=== PATIENT | male | born 2000 | race Caucasian/White ===

== ENCOUNTER 2022-07-18 16:25 | Emergency (ER) | payer SELFPAY ==
[2022-07-18 17:31] LABS: Absolute Lymphocytes (CBC) 2.5 K/uL (0.7-4.9); Hematocrit 43.8 % (39.6-49.0); Lymphocytes % 25.8 % (15.3-44.8); MPV 8.7 fL (7.6-11.3); RBC Red Blood Cell Count 5.09 M/uL (4.33-5.43)
--- NOTE | 2022-07-18 18:36 | EDPHYS ---
Physician Documentation [facility] Name: Tex Christopher III Age: 22 yrs Sex: Male : 2000 Arrival Date: 07/18/2022 Time: 16:26 Bed Treatment Private MD: ED Physician Helio Thompson HPI: 07/18 16:48 This 22 yrs old Male presents to ER via Ambulatory with complaints of Rectal Bleeding. ms3 18:27 22-year-old male with past medical history of hemorrhoids presents for rectal bleeding ms3 that has occurred over the last week. Patient state the bleeding occurs in the morning with his bowel movement. Patient denies pain at this time. Patient denies alleviating or inciting factors. Patient denies SOB, lighheadedness, chest pain, fevers, chills.. Historical: - Allergies: 16:38 No Known Allergies; kb3 - Home Meds: 16:38 None [Active]; kb3 - PMHx: 16:38 Hemorrhoids; kb3 - PSHx: 16:38 None; kb3 - Immunization history:: Adult Immunizations up to date, Client reports having NOT received the Covid vaccine. Last tetanus immunization: up to date. - Social history:: Smoking status: Patient denies any tobacco usage or history of. ROS: 18:27 Constitutional: Negative for fever, and chills. ENT: Negative for injury, pain, and ms3 discharge, Neck: Negative for injury, pain, and swelling, Cardiovascular: Negative for chest pain, and palpitations. Respiratory: Negative for shortness of breath, cough, wheezing, and pleuritic chest pain. 18:27 Skin: Negative for injury, rash, and discoloration, Neuro: Negative for headache, weakness, numbness, tingling. 18:27 Abdomen/GI: Positive for rectal bleeding. 18:27 All other systems are negative. Exam: 18:27 Constitutional: This is a well developed, well nourished patient who is awake, alert, ms3 and in no acute distress. Head/Face: Normocephalic, atraumatic. Eyes: Pupils equal round and reactive to light, extra-ocular motions intact. Lids and lashes normal. Conjunctiva and sclera are non-icteric and not injected. Periorbital areas with no swelling, redness, or edema. Chest/axilla: Normal chest wall appearance and motion. Nontender with no deformity. Cardiovascular: Regular rate and rhythm with a normal S1 and S2. No gallops, murmurs, or rubs. Normal PMI, no JVD. No pulse deficits. Respiratory: Lungs have equal breath sounds bilaterally, clear to auscultation and percussion. No rales, rhonchi or wheezes noted. No increased work of breathing, no retractions or nasal flaring. Abdomen/GI: Soft, non-tender, with normal bowel sounds. No distension or tympany. No guarding or rebound. No evidence of tenderness throughout. Skin: Warm, dry with normal turgor. Normal color with no rashes, no lesions, and no evidence of cellulitis. Psych: Awake, alert, with orientation to person, place and time. Behavior, mood, and affect are within normal limits. 18:27 : Patient defers rectal exam as he had one performed a few days ago at his PMD office.. Vital Signs: 16:35 BP 125 / 83; Pulse 94; Resp 16; Temp 98.1; Pulse Ox 99% ; Weight 111.13 kg; Height 5 kb3 ft. 9 in. (175.26 cm); Pain 0/10; 16:35 Body Mass Index 36.18 (111.13 kg, 175.26 cm) kb3 MDM: 16:40 Patient medically screened. ms3 18:27 Data reviewed: vital signs, nurses notes, lab test result(s), and as a result, I will ms3 discharge patient. Counseling: I had a detailed discussion with the patient and/or guardian regarding: the historical points, exam findings, and any diagnostic results supporting the discharge/admit diagnosis, lab results, the need for outpatient follow up, to return to the emergency department if symptoms worsen or persist or if there are any questions or concerns that arise at home. 07/18 16:40 Order name: CBC with Diff; Complete Time: 18:03 ms3 Administered Medications: No medications were administered Disposition Summary: 07/18/22 18:36 Discharge Ordered Location: Home ms3 Condition: Stable ms3 Diagnosis - Rectal bleeding ms3 Followup: ms3 - With: Hai Mar MD - When: 2 - 3 days - Reason: Recheck today's complaints Discharge Instructions: - Discharge Summary Sheet ms3 - Rectal Bleeding ms3 - Rectal Bleeding, [id number] ms3 Forms: - Medication Reconciliation Form ms3 - Thank You Letter ms3 - Antibiotic Education ms3 - Prescription Opioid Use ms3 Signatures: Dispatcher [employer] EDHelio Dennison, DO ms3 Riana Schaffer, RN RN kb3 Corrections: (The following items were deleted from the chart) 22:33 18:27 22-year-old male with past medical history of hemorrhoids presents for. ms3 ms3 22:36 18:27 22-year-old male with past medical history of hemorrhoids presents for. ms3 ms3
--- NOTE | 2022-07-18 18:36 | ER ---
Nurse's Notes [facility] Name: Tex Christopher III Age: 22 yrs Sex: Male : 2000 Arrival Date: 07/18/2022 Time: 16:26 Bed Treatment Private MD: Diagnosis: Rectal bleeding Presentation: 07/18 16:35 Chief complaint: Patient states: Pt reports hx of bleeding hemorrhoids, states bleeding kb3 from rectum x1.5 weeks this episode. Coronavirus screen: Vaccine status: Patient reports being unvaccinated. Client denies travel out of the [place] in the last 14 days. Ebola Screen: Patient negative for fever greater than or equal to 101.5 degrees Fahrenheit, and additional compatible Ebola Virus Disease symptoms Patient denies exposure to infectious person. Patient denies travel to an Ebola-affected area in the 21 days before illness onset. Initial Sepsis Screen: Does the patient meet any 2 criteria? No. Patient's initial sepsis screen is negative. Does the patient have a suspected source of infection? No. Patient's initial sepsis screen is negative. Risk Assessment: Do you want to hurt yourself or someone else? Patient reports no desire to harm self or others. Onset of symptoms was July 04, 2022. 16:35 Method Of Arrival: Ambulatory 3 16:35 Acuity: MARCK 3 kb3 Triage Assessment: 16:38 General: Appears in no apparent distress. Behavior is calm, cooperative. Pain: Denies kb3 pain. Historical: - Allergies: 16:38 No Known Allergies; kb3 - Home Meds: 16:38 None [Active]; kb3 - PMHx: 16:38 Hemorrhoids; kb3 - PSHx: 16:38 None; kb3 - Immunization history:: Adult Immunizations up to date, Client reports having NOT received the Covid vaccine. Last tetanus immunization: up to date. - Social history:: Smoking status: Patient denies any tobacco usage or history of. Vital Signs: 16:35 BP 125 / 83; Pulse 94; Resp 16; Temp 98.1; Pulse Ox 99% ; Weight 111.13 kg; Height 5 kb3 ft. 9 in. (175.26 cm); Pain 0/10; 16:35 Body Mass Index 36.18 (111.13 kg, 175.26 cm) kb3 ED Course: 16:26 Patient arrived in ED. am2 16:32 Helio Thompson DO is Attending Physician. ms3 16:38 Triage completed. kb3 16:38 Arm band placed on right wrist. kb3 18:13 Meredith Elena, RN is Primary Nurse. iw 18:35 Hai Mar MD is Referral Physician. ms3 Administered Medications: No medications were administered Outcome: 18:36 Discharge ordered by . ms3 18:52 Patient left the ED. iw Signatures: Meredith Elena, RN RN iw Sherrie Rawls am2 Helio Thompson DO DO ms3 Riana Schaffer, RN RN kb3
[2022-07-18 19:51] VITALS: BP 125/83; TEMP 98.1; O2SAT 99
== END 2022-07-18 18:52 | disposition home or self-care (01) ==
LOC: ER 16:25
DX: K62.5 Hemorrhage of anus and rectum (principal)
CPT/HCPCS: 36415; 85025; 99281

== ENCOUNTER 2023-01-25 17:15 | Emergency (ER) | payer SELFPAY ==
--- OUTSIDE RECORDS SUMMARY | 2023-01-25 17:17 | XMS REPORT | Continuity of Care Document ---
:2000 Author Organization [facility] t Address [address] [place] [address] Care Team Providers Name Role Phone PCP, PATIENT DOES NOT HAVE A Primary Care Physician Unavaila ISREAL Marquis Attending Clinician Unavailable Isreal Graves MD Attending Clinician Problems Condition Condition Condition Status Onset Resolution Last Treating Co mments Source Name Details Category Date Date Treatment Clinician Date No known No known Disease Unive rs active active ity of problems problems [facility] Allergies, Adverse Reactions, Alerts Allergy Allergy Status Severity Reaction(s) Onset Inactive Treating Comm ents Source Name Type Date Date Clinician NO KNOWN Drug Active Univers ALLERGIE Class ity of S [facility] Social History Social Habit Start Date Stop Date Quantity Comments Source Exposure to 2022-04-18 2022-04-28 Not sure [facility] SARS-CoV-2 (event) 00:00:00 11:59:00 Medica l Branch Sex Assigned At [birth year] [facility] 00:00:00 00:00:00 [facility] Smoking Status Start Date Stop Date Source Unknown if ever smoked [facility] Medications Ordered Filled Start Stop Current Ordering Indication Dosage Frequency Signature Comments Components Source Medication Medication Date Date Medication? Clinician (SIG) Name Name maalox:diph 2021- No 15mL 15 mL, Uni vers enhydrAMINE 04-28 Oral, ity of :lidocaine 18:45: 17:38 ONCE, 1 Misbah as 2 % viscous 00 :00 dose, On Medi radha 1:1:1 [facility] ([facility]OUT 04/28/22 at [facility]) 1345, oral Routine suspension 15 mL No known No [facility] medications 04-28 ity of 12:47: [place] [id number] Medical Branch Vital Signs Vital Name Observation Time Observation Value Comments Source Systolic blood 2022-04-28 17:00:00 135 mm[Hg] Univer sity of pressure [facility] Diastolic blood 2022-04-28 17:00:00 99 mm[Hg] Unive rsity of pressure [facility] Heart rate 2022-04-28 17:00:00 99 /min [facility] Body temperature 2022-04-28 17:00:00 36.89 Shanthi [facility] 2022-04-28 17:00:00 18 /min [facility] Body height 2022-04-28 17:00:00 175.3 cm [facility] Body weight 2022-04-28 17:00:00 113.399 kg [facility] BMI 2022-04-28 17:00:00 36.92 kg/m2 [facility] Oxygen saturation in 2022-04-28 17:00:00 100 /min [facility] Arterial blood by [facility] Pulse oximetry Branch Procedures Procedure Date / Time Performed Performing Clinician Xavier e NOTICE OF PRIVACY 2022-04-28 16:57:07 Doctor Unassigned, No Univ [facility] Name [facility] CONSENT/REFUSAL FOR 2022-04-28 16:55:58 [facility] Un[facility]igned, [facility] Branch TREATMENT Encounters Start End Encounter Admission Attending Care Care Encounter Source Date/Time Date/Time Type Type Clinicians Facility Department ID 2022-04-28 2022-04-28 Emergency X STAR, DEMB ERT [id number] Univers 12:04:00 13:24:00 ISREAL ureña [facility] 2022-04-28 2022-04-28 Emergency Star, [facility] [id number] Univers 12:04:00 13:24:00 [id number] [id number] Medi radha 084 Branch Results This patient has no known results.
--- NOTE | 2023-01-25 18:34 | RAD REPORT ---
EXAM DESCRIPTION: CT - Stone Protocol - 01/25/2023 6:28 pm CLINICAL HISTORY: Flank pain. Swelling;Abd pain COMPARISON: No comparisons TECHNIQUE: Axial images were obtained without oral or IV contrast. Lack of contrast limits solid org an and vascular assessment. The [id number] spans the entirety of the system partially obscuring uppermost abdomen and lung bases. Coronal reformatted images were obtained and reviewed. All CT scans are performed using dose optimization technique as appropriate and may include automated exposure control or mA/KV adjustment according to patient size. FINDINGS: The lower lung nguyen are clear. Imaged portions of the liver and spleen show no suspicious findings on non-contrast imaging. The panc reas and adrenal glands are normal. No pathologic lymphadenopathy in the abdomen or pelvis. No urinary tract stones or obstructive uropathy. No bowel obstruction, free air, free fluid or abscess. Normal appendix noted. No significant bony abnormality. IMPRESSION: No urinary tract stones or obstructive uropathy.
[2023-01-25 18:38] LABS: Urine Blood Negative (Negative); Urine Glucose Negative (Negative); Urine Protein 1+ (Negative); Urine Specific Gravity 1.025 (1.005-1.030)
--- NOTE | 2023-01-25 18:41 | ER ---
Nurse's Notes [facility] Name: Txe Christopher III Age: 22 yrs Sex: Male : 2000 Arrival Date: 01/25/2023 Time: 17:16 Bed IW2 Private MD: Diagnosis: Abdominal pain, unspecified;Constipation;Unspecified hemorrhoids Presentation: 01/25 17:27 Chief complaint: Upper abdominal pain and nausea x 3 days, worse over last 2 hours. hb Also c/o bleeding hemorrhoids. Coronavirus screen: At this time, the client does not indicate any symptoms associated with coronavirus-19. Ebola Screen: No symptoms or risks identified at this time. Risk Assessment: Do you want to hurt yourself or someone else? Patient reports no desire to harm self or others. Onset of symptoms was January 22, 2023. 17:27 Method Of Arrival: Ambulatory hb 17:27 Acuity: MARCK 3 hb Historical: - Allergies: 17:29 No Known Allergies; hb - Home Meds: 17:29 Depakote ER Oral [Active]; Seroquel Oral [Active]; hb - PMHx: 17:29 hemorrhoids; Bipolar disorder; hb - PSHx: 17:29 None; hb - Immunization history:: Adult Immunizations up to date. - Social history:: Smoking status: Reported history of juuling and/or vaping. Vital Signs: 17:27 BP 138 / 101; Pulse 70; Resp 18; Temp 97.9; Pulse Ox 100% ; Weight 106.59 kg; Height 5 hb ft. 9 in. ; Pain 8/10; 17:27 Body Mass Index 34.70 (106.59 kg, 175.26 cm) hb 17:27 Pain Scale: Adult hb ED Course: 17:16 Patient arrived in ED. mr 17:20 Sonya Arora FNP-C is PHCP. snw 17:20 Eulalio Ochoa MD is Attending Physician. snw 17:29 Triage completed. hb 17:29 Arm band placed on. hb 18:30 CT Stone Protocol In Process Unspecified. EDMS Administered Medications: No medications were administered Outcome: 18:40 Discharge ordered by . snw Signatures: Dispatcher [employer] EDMS Sonya Arora FNP-C FNP-Anjana Vogel Heather, RN RN hb Corrections: (The following items were deleted from the chart) 17:30 17:29 Social history: Smoking status: Patient denies any tobacco usage or history of. hbhb
--- NOTE | 2023-01-25 18:41 | EDPHYS ---
Physician Documentation [facility] Name: Tex Christopher III Age: 22 yrs Sex: Male : 2000 Arrival Date: 01/25/2023 Time: 17:16 Bed IW2 Private MD: ED Physician Eulalio Ochoa HPI: 01/25 18:28 This 22 yrs old Male presents to ER via Ambulatory with complaints of Abdominal Pain, snw Hemorrhoids. 18:28 The patient presents with abdominal pain in the epigastric area, in the upper abdomen. snw Onset: The symptoms/episode began/occurred acutely. The symptoms do not radiate. Associated signs and symptoms: Pertinent positives: bleeding hemorrhoid, constipation. The symptoms are described as burning. Severity of pain: At its worst the pain was moderate. The patient has experienced similar episodes in the past. The patient has not recently seen a physician. Historical: - Allergies: 17:29 No Known Allergies; hb - Home Meds: 17:29 Depakote ER Oral [Active]; Seroquel Oral [Active]; hb - PMHx: 17:29 hemorrhoids; Bipolar disorder; hb - PSHx: 17:29 None; hb - Immunization history:: Adult Immunizations up to date. - Social history:: Smoking status: Reported history of juuling and/or vaping. ROS: 18:26 Constitutional: Negative for fever, chills, and weight loss, Eyes: Negative for injury, snw pain, redness, and discharge, ENT: Negative for injury, pain, and discharge, Neck: Negative for injury, pain, and swelling, Cardiovascular: Negative for chest pain, palpitations, and edema, Respiratory: Negative for shortness of breath, cough, wheezing, and pleuritic chest pain, Back: Negative for injury and pain, : Negative for injury, bleeding, discharge, and swelling, MS/Extremity: Negative for injury and deformity, Skin: Negative for injury, rash, and discoloration, Neuro: Negative for headache, weakness, numbness, tingling, and seizure, Psych: Negative for depression, anxiety, suicide ideation, homicidal ideation, and hallucinations. 18:26 Abdomen/GI: Positive for abdominal pain, constipation, abdominal cramps, of the epigastric area, right upper quadrant and left upper quadrant, c/o hemorrhoids. Pt states he has been here many times for the same. Pt states he is always told to f/u but has not. Exam: 18:25 Constitutional: This is a well developed, well nourished patient who is awake, alert, snw and in no acute distress. Head/Face: Normocephalic, atraumatic. Eyes: Pupils equal round and reactive to light, extra-ocular motions intact. Lids and lashes normal. Conjunctiva and sclera are non-icteric and not injected. Cornea within normal limits. Periorbital areas with no swelling, redness, or edema. ENT: Nares patent. No nasal discharge, no septal abnormalities noted. Tympanic membranes are normal and external auditory canals are clear. Oropharynx with no redness, swelling, or masses, exudates, or evidence of obstruction, uvula midline. Mucous membranes moist. Neck: Trachea midline, no thyromegaly or masses palpated, and no cervical lymphadenopathy. Supple, full range of motion without nuchal rigidity, or vertebral point tenderness. No Meningismus. Chest/axilla: Normal chest wall appearance and motion. Nontender with no deformity. No lesions are appreciated. Cardiovascular: Regular rate and rhythm with a normal S1 and S2. No gallops, murmurs, or rubs. Normal PMI, no JVD. No pulse deficits. Respiratory: Lungs have equal breath sounds bilaterally, clear to auscultation and percussion. No rales, rhonchi or wheezes noted. No increased work of breathing, no retractions or nasal flaring. 18:25 Back: No spinal tenderness. No costovertebral tenderness. Full range of motion. Skin: Warm, dry with normal turgor. Normal color with no rashes, no lesions, and no evidence of cellulitis. MS/ Extremity: Pulses equal, no cyanosis. Neurovascular intact. Full, normal range of motion. Neuro: Awake and alert, GCS 15, oriented to person, place, time, and situation. Cranial nerves II-XII grossly intact. Motor strength 5/5 in all extremities. Sensory grossly intact. Cerebellar exam normal. Normal gait. 18:25 Abdomen/GI: Inspection: obese Bowel sounds: normal, Palpation: mild abdominal tenderness, in the epigastric area, right upper quadrant and left upper quadrant. 18:25 Psych: pt taking his medications per report, hx of constipation. Vital Signs: 17:27 BP 138 / 101; Pulse 70; Resp 18; Temp 97.9; Pulse Ox 100% ; Weight 106.59 kg; Height 5 hb ft. 9 in. ; Pain 8/10; 17:27 Body Mass Index 34.70 (106.59 kg, 175.26 cm) hb 17:27 Pain Scale: Adult hb MDM: 17:54 Patient medically screened. snw 01/25 18:11 Order name: Urine Dipstick-Ancillary (obtain specimen); Complete Time: 18:12 snw 01/25 18:11 Order name: Urine Culture snw 01/25 18:11 Order name: Urine Microscopic Only snw 01/25 18:11 Order name: CT Stone Protocol; Complete Time: 18:37 snw 01/25 18:39 Order name: Urine Dipstick-Ancillary EDMS Administered Medications: No medications were administered Disposition Summary: 01/25/23 18:40 Discharge Ordered Location: Home snw Problem: an acute exacerbation snw Symptoms: are unchanged snw Condition: Stable snw Diagnosis - Abdominal pain, unspecified snw - Constipation snw - Unspecified hemorrhoids snw Followup: snw - With: Emergency Department - When: As needed - Reason: Worsening of condition Followup: snw - With: Private Physician - When: 2 - 3 days - Reason: Recheck today's complaints, Continuance of care, Re-evaluation by your physician Forms: - Medication Reconciliation Form snw - Thank You Letter snw - Antibiotic Education snw - Prescription Opioid Use snw Signatures: Dispatcher [employer] EDMS Sonya Arora FNP-Narciso CLINICAL BIOCHEMICAL GENETICIST-Csnw Mackenzie Tapia, RN RN hb Corrections: (The following items were deleted from the chart) 17:30 17:29 Social history: Smoking status: Patient denies any tobacco usage or history of. hbhb
[2023-01-25 18:53] LABS: Urine Bacteria <20 /HPF (<20); Urine Mucus Slight /HPF (None Seen); Urine RBC <5 /HPF (None Seen); Urine WBC Clump Rare /HPF (None Seen)
[2023-01-25] MEDS ORDERED: POLYETHYL GLY 3350 17 GM/DOSE ONE (18:59)
[2023-01-25] MEDS ORDERED: DICYCLOMINE HCL 10 MG CAP ONE (18:59)
[2023-01-25 22:33] VITALS: BP 138/101; TEMP 97.9; O2SAT 100
== END 2023-01-25 19:15 | disposition home or self-care (01) ==
LOC: ER 17:15
DX: K59.00 Constipation, unspecified (principal); K64.9 Unspecified hemorrhoids
CPT/HCPCS: 74176; 76377; 81003; 81015; 87086; 87088; 99283